=== PATIENT | female | born 1945 | race Caucasian/White ===

== ENCOUNTER 2017-02-01 11:58 | Inpatient (IN) | payer MEDICARE, OTHER ==
[~2017-02-01] VITALS: Ht 160 cm; Wt 43.2 kg
[~2017-02-01 11:58] MED LIST: CHL4PW PO; LATA0.0015 LEFTEYE; PRA1C PO; SERT-135 PO; TIMO0.5S40 LEFTEYE
[2017-02-01 13:55] LABS: Basophils # (auto) 0 uL; Basophils % (auto) 0.3 % (0.0-2.0); Eosinophils # (auto) 0 uL; Eosinophils % (auto) 0.4 % (0.0-7.0); Hematocrit 34.5 % (36.0-46.0); Hemoglobin 11.8 g/dL (12.2-16.2); Lymphocytes # (auto) 0.5 uL; Lymphocytes % (auto) 16.7 % (10.0-50.0); Mean Corpuscular Hemoglobin 33.3 pg (28.0-32.0); Mean Corpuscular Hgb Conc. 34.3 g/dL (32.0-36.0); Mean Corpuscular Volume 97.1 fL (80.0-100.0); Monocytes # (auto) 0.4 uL; Monocytes % (auto) 14.1 % (0.0-12.0); Neutrophils # (auto) 2.2 uL; Neutrophils % (auto) 68.5 % (37.0-80.0); Platelet Count (auto) 214 10^3/uL (140-450); Red Cell Distribution Width 13.5 % (11.6-16.0); White Blood Cell 3.1 10^3/uL (4.4-10.8)
[2017-02-01 14:39] LABS: Albumin 3.7 g/dL (3.4-5.0); Alkaline Phosphatase 60 U/L (45-117); Anion Gap 15 (5-15); Aspartate Aminotransferase 26 U/L (15-37); BUN/Creatinine Ratio 23.8; Bilirubin, Total 0.5 mg/dL (0.2-1.0); Blood Urea Nitrogen 19 mg/dL (7-18); Calcium 7.8 mg/dL (8.5-10.1); Carbon Dioxide 18 mmol/L (21-32); Chloride 105 mmol/L (98-107); GFR African American 91 mL/min; GFR Non-African American 75 mL/min; Glucose 77 mg/dL (74-106); Magnesium 2.2 mg/dL (1.6-2.6); Sodium 138 mmol/L (136-145); Total Protein 6.9 g/dL (6.4-8.2)
[2017-02-01 14:46] LABS: Potassium 2.8 mmol/L (3.5-5.1)
[2017-02-01] MEDS ORDERED: METR500T PO (15:30)
[2017-02-01] MEDS ORDERED: SODIUM CHLORIDE 0.9% 1,000 ML IV ONE (16:03)
[2017-02-01] MEDS ORDERED: POTASSIUM CHL 10% (20 MEQ/15ML) ORAL SOLN PO ONE (16:15)
[2017-02-01] MEDS ORDERED: HYDROcodone-ACET 5/325MG TAB PO PRN (18:30)
[2017-02-01] MEDS ORDERED: ACETAMINOPHEN 500 MG TAB PO PRN (18:30)
[2017-02-01] MEDS ORDERED: MORPHINE SULF INJ 2 MG/ML SYRINGE 1ML IV PRN ×2 (18:30)
[2017-02-01] MEDS ORDERED: NITROGLYCERIN 0.4 MG SL TAB SL PRN (18:30)
[2017-02-01] MEDS ORDERED: PROMETHAZINE HCL 25 MG/ML 1ML IV PRN (18:30)
[2017-02-01] MEDS ORDERED: FAMOTIDINE (10MG/ML) 2ML VL IV SCH (18:30)
[2017-02-01] MEDS ORDERED: LORazepam 0.5 MG TAB PO PRN (18:30)
[2017-02-01] MEDS ORDERED: cefTRIAXone 1GM/50ML D5W 50 ML IV ONE (19:15)
[2017-02-01 19:37] LABS: Urine Bilirubin Negative (Negative); Urine Blood Negative /uL (Negative); Urine Color Amber (Yellow); Urine Glucose Normal (Normal); Urine Ketone 4+ (Negative); Urine Mucus FEW (None Seen); Urine Nitrite Negative (Negative); Urine RBC <1 /hpf (0 - 4); Urine Squamous Epithelial Cell FEW /hpf (<5); Urine Urobilinogen Normal (Negative); Urine pH 6.5 (5.0-8.0)
[2017-02-01 20:00] VITALS: BP 139/72
[2017-02-01] MEDS: TEMAZEPAM 15 MG CAP PO PRN (21:44)
[2017-02-01] MEDS: SOD CHL 0.9%/ KCL 40MEQ 1,000 ML IV SCH (21:44)
[2017-02-01 22:00] VITALS: BP 139/72
[2017-02-01] MEDS: metroNIDAZOLE 500MG/100ML 100 ML IV SCH (23:52)
[2017-02-02] MEDS: SOD CHL 0.9%/ KCL 40MEQ 1,000 ML IV SCH (04:30)
[2017-02-02 05:30] VITALS: BP 131/67
[2017-02-02] MEDS: metroNIDAZOLE 500MG/100ML 100 ML IV SCH ×3 (05:57→17:34)
[2017-02-02 06:44] LABS: Basophils # (auto) 0 uL; Basophils % (auto) 0.4 % (0.0-2.0); Eosinophils # (auto) 0.1 uL; Eosinophils % (auto) 1.9 % (0.0-7.0); Hematocrit 35.2 % (36.0-46.0); Lymphocytes # (auto) 0.8 uL; Lymphocytes % (auto) 18.4 % (10.0-50.0); Mean Corpuscular Hemoglobin 32.8 pg (28.0-32.0); Mean Corpuscular Hgb Conc. 34.1 g/dL (32.0-36.0); Mean Corpuscular Volume 96.1 fL (80.0-100.0); Mean Platelet Volume 6.8 fL (7.4-10.4); Monocytes # (auto) 0.5 uL; Monocytes % (auto) 11.6 % (0.0-12.0); Neutrophils # (auto) 2.8 uL; Neutrophils % (auto) 67.7 % (37.0-80.0); Platelet Count (auto) 221 10^3/uL (140-450); Red Cell Distribution Width 13.5 % (11.6-16.0); White Blood Cell 4.2 10^3/uL (4.4-10.8)
[2017-02-02 07:14] LABS: Albumin 3.3 g/dL (3.4-5.0); BUN/Creatinine Ratio 13.8; Bilirubin, Total 0.4 mg/dL (0.2-1.0); Calcium 7.6 mg/dL (8.5-10.1); Potassium 3.8 mmol/L (3.5-5.1); Total Protein 6.5 g/dL (6.4-8.2)
[2017-02-02 09:17] VITALS: BP 124/67
[2017-02-02] MEDS: ENOXAPARIN SOD 40 MG/0.4 ML SYRINGE SC SCH (09:22)
[2017-02-02] MEDS: cefTRIAXone 1GM/50ML D5W 50 ML IV SCH (09:22)
[2017-02-02] MEDS ORDERED: FAMOTIDINE (10MG/ML) 2ML VL IV SCH (10:00)
[2017-02-02 12:30] VITALS: BP 129/70
[2017-02-02] MEDS: SOD CHL 0.45% WITH 20MEQ KCL 1,000 ML IV SCH (14:45)
[2017-02-02] MEDS: CHOLESTYRAMINE 4 GM POWDER PO SCH ×2 (16:03→21:48)
[2017-02-02 21:30] VITALS: BP 161/76
[2017-02-02] MEDS: TEMAZEPAM 15 MG CAP PO PRN (21:48)
[2017-02-02] MEDS ORDERED: CHOLESTYRAMINE 4 GM POWDER GT SCH (23:00)
[2017-02-03 05:00] VITALS: BP 159/85
[2017-02-03] MEDS: metroNIDAZOLE 500MG/100ML 100 ML IV SCH ×3 (06:31→12:34)
[2017-02-03] MEDS: SOD CHL 0.45% WITH 20MEQ KCL 1,000 ML IV SCH (06:31)
[2017-02-03] MEDS: CHOLESTYRAMINE 4 GM POWDER PO SCH ×2 (06:31→14:29)
[2017-02-03 06:32] LABS: Basophils # (auto) 0 uL; Basophils % (auto) 0.7 % (0.0-2.0); Eosinophils # (auto) 0.1 uL; Eosinophils % (auto) 2.1 % (0.0-7.0); Hematocrit 36.1 % (36.0-46.0); Hemoglobin 12.4 g/dL (12.2-16.2); Lymphocytes # (auto) 0.7 uL; Lymphocytes % (auto) 16.1 % (10.0-50.0); Mean Corpuscular Hemoglobin 32.9 pg (28.0-32.0); Mean Corpuscular Hgb Conc. 34.3 g/dL (32.0-36.0); Mean Platelet Volume 6.8 fL (7.4-10.4); Monocytes # (auto) 0.6 uL; Monocytes % (auto) 12.9 % (0.0-12.0); Neutrophils % (auto) 68.2 % (37.0-80.0); Platelet Count (auto) 212 10^3/uL (140-450); Red Cell Distribution Width 13.5 % (11.6-16.0); White Blood Cell 4.4 10^3/uL (4.4-10.8)
[2017-02-03 06:49] LABS: Calcium 7.7 mg/dL (8.5-10.1); Potassium 3.4 mmol/L (3.5-5.1)
[2017-02-03 06:51] LABS: BUN/Creatinine Ratio 6.2
[2017-02-03 08:16] VITALS: BP 139/71
[2017-02-03] MEDS: cefTRIAXone 1GM/50ML D5W 50 ML IV SCH (09:28)
[2017-02-03] MEDS: ENOXAPARIN SOD 40 MG/0.4 ML SYRINGE SC SCH (09:28)
[2017-02-03] MEDS ORDERED: CHL4PW PO (10:18)
[2017-02-03 11:22] VITALS: BP 139/71
[2017-02-03 11:46] VITALS: BP 149/75
[2017-02-03 16:44] VITALS: BP 154/81
== END 2017-02-03 18:56 | disposition home health service (06) | DRG 392 ==
LOC: ER 11:58 → EDBD 11:58 → TELE 11:59 → TELE-WESTW 19:34
PROVIDERS: ADMIT Internal Medicine; ATTEND Internal Medicine
DX: K52.9 Noninfective gastroenteritis and colitis, unspecified (principal); N39.0 Urinary tract infection, site not specified; D64.9 Anemia, unspecified; E87.6 Hypokalemia; F03.90 Unspecified dementia, unspecified severity, without behavioral disturbance, psychotic disturbance, mood disturbance, and anxiety; H40.9 Unspecified glaucoma; F41.9 Anxiety disorder, unspecified; F32.9 Major depressive disorder, single episode, unspecified; D72.819 Decreased white blood cell count, unspecified; I10 Essential (primary) hypertension; G89.4 Chronic pain syndrome; M81.0 Age-related osteoporosis without current pathological fracture; Z87.891 Personal history of nicotine dependence; Z79.899 Other long term (current) drug therapy; Z90.49 Acquired absence of other specified parts of digestive tract; Z80.8 Family history of malignant neoplasm of other organs or systems
CPT/HCPCS: 36415; 71010; 74176; 80048; 80053; 81001; 82150; 83690; 83735; 84443; 84484; 85025; 85652; 87081; 87086; 87493; 93005; 96360; 96361; J0696; J3490